=== PATIENT | male | born 1955 | race Caucasian/White ===

== ENCOUNTER 2018-09-09 09:08 | Emergency (ER) | payer OTHER ==
[~2018-09-09] VITALS: Ht 175.3 cm; Wt 133.8 kg
[2018-09-09] MEDS ORDERED: ASPIR-LOW81 MG PO (09:52)
== END 2018-09-09 14:23 | disposition short-term general hospital (02) ==
LOC: ED 09:08
DX: S82.142A Displaced bicondylar fracture of left tibia, initial encounter for closed fracture (principal); S82.832A Other fracture of upper and lower end of left fibula, initial encounter for closed fracture; Z88.5 Allergy status to narcotic agent; Z88.8 Allergy status to other drugs, medicaments and biological substances; Z79.82 Long term (current) use of aspirin; X50.1XXA Overexertion from prolonged static or awkward postures, initial encounter
CPT/HCPCS: 36415; 73560; 73610; 73700; 80053; 85025; 85610; 90471; 90715; 96374; 96375; 96376; 99285-25; J1170; J2405; J2550